=== PATIENT | female | born 1955 | race Caucasian/White ===

== ENCOUNTER 2016-09-10 14:05 | Emergency (ER) | payer BC ==
[2016-09-10 14:56] VITALS: BP 122/84
--- NOTE | 2016-09-10 14:59 | UC ---
Lower Extremity/Ankle HPI - HPI Summary HPI Summary: The patient comes in today for: 1. Right foot: Onset: 2 weeks. Palliative/provocative: Standing and walking makes it worse. Quality: Dull ache. Region: Dorsum of her right foot. Severity: 6/1o at rest, and 7/10 with walking. Time: Constant. Associated symptoms: Injury: She is a runner. She ran 7 miles and about a day later, she noticed soreness on the dorsum of her right foot. Over the last 2 weeks, she has been elevating and putting ice on it. She has continued to walk and wear shoes with padding. She states that this has not helped. Rx: Tylenol only x 2 in the last two weeks. * - History of Current Complaint Stated Complaint: FOOT INJURY Time Seen by Provider: 09/10/16 14:42 Hx Obtained From: Patient Hx Last Menstrual Period: "a few years ago." - Allergies/Home Medications Allergies/Adverse Reactions: Allergies Allergy/AdvReac Type Severity Reaction Status Date / Time NSAIDs Allergy Difficulty Verified 09/10/16 14:56 Breathing/Wheezing Shellfish Allergy Allergy Unknown Verified 09/10/16 14:56 Reaction Details Sulfa Antibiotics Allergy Hives Verified 09/10/16 14:56 Antibiotic taken at [facility] Allergy Swelling Uncoded 09/10/16 14:56 (Unknown contrast dye Allergy Difficulty Uncoded 09/10/16 14:56 Breathing/Wheezing PMH/Surg Hx/FS Hx/Imm Hx Previously Healthy: No - "insomnia." Endocrine History: Thyroid Disease, Hypothyroidism Respiratory History: Asthma - Surgical History Surgical History: Yes Surgery Procedure, Year, and Place: appe; exploratory lap, Partial Lung resection right lung 03/21 - Family History Known Family History: Positive: Cardiac Disease Negative: Hypertension - Social History Occupation: Employed Full-time Alcohol Use: Occasionally Substance Use Type: None Smoking Status (MU): Never Smoked Tobacco - Immunization History Most Recent Influenza Vaccination: 2012 Most Recent Tetanus Shot: 2008 Most Recent Pneumonia Vaccination: 2012 Review of Systems Constitutional: Negative Skin: Negative Eyes: Negative ENT: Negative Respiratory: Negative Cardiovascular: Negative Gastrointestinal: Negative Genitourinary: Negative Musculoskeletal: Arthralgia All Other Systems Reviewed And Are Negative: Yes Physical Exam Triage Information Reviewed: Yes Appearance: Well-Appearing, No Pain Distress, Well-Nourished, Other: - Patient has a flat affect. Vital Signs Reviewed: Yes Eyes: Positive: Conjunctiva Clear. Negative: Discharge ENT: Positive: Hearing grossly normal. Negative: Pharyngeal erythema, Nasal congestion, Nasal drainage, TM bulging, TM dull, TM red, Tonsillar swelling, Tonsillar exudate Dental: Negative: Gross Decay/Caries @, Dental Fracture @ Neck: Positive: Supple, Nontender, No Lymphadenopathy. Negative: Nuchal Rigidity Respiratory: Positive: Lungs clear, No respiratory distress, No accessory muscle use. Negative: Crackles, Wheezing Cardiovascular: Positive: RRR, No Murmur Abdomen Description: Positive: Nontender, No Organomegaly, Soft. Negative: Distended, Guarding Musculoskeletal: Positive: Other: - She has tenderness to palpation of the dorsum of the right foot and with hyperflexion of the toes. There is no ecchymosis or edema.. Negative: Strength Intact, ROM Intact, No Edema Neurological: Positive: Alert, Muscle Tone Normal Psychological: Positive: Age Appropriate Behavior, Consolable Skin: Negative: rashes, breakdown Diagnostics - Radiology No standard instances Xray Interpretation: No Acute Changes Radiology Interpretation Completed By: Radiologist Lower Extremity Course/Dx - Course Course Of Treatment: Patient was told that she had tenosynovitis of the dorsal tendons of the right foot. Treatment options in light of her NSAID allergy were discussed. - Differential Dx/Diagnosis Differential Diagnosis/HQI/PQRI: Cellulitis, Sprain, Strain Provider Diagnoses: Rigth foot tenosynovitis. Discharge - Discharge Plan Condition: Stable Disposition: HOME Patient Education Materials: Tenosynovitis (ED) Additional Instructions: If the prednisone does not your foot, please see one of the podiatry services in the [place] area. IF you get worse, please be seen sooner by your primary care provider or us.
--- NOTE | 2016-09-10 15:28 | RAD ---
HISTORY: Right foot pain, stress fracture COMPARISONS: None VIEWS: 3, Frontal, lateral, and oblique views of the right foot FINDINGS: BONE DENSITY: Normal. BONES: There is no displaced fracture. There is no appreciable erosion or periosteal reaction. JOINTS: There is no arthropathy. ALIGNMENT: There is no dislocation. SOFT TISSUES: Unremarkable. OTHER FINDINGS: None. IMPRESSION: NO ACUTE OSSEOUS INJURY. IF SYMPTOMS PERSIST, RECOMMEND REPEAT IMAGING.
== END 2016-09-10 15:58 | disposition home or self-care (01) ==
LOC: UCEAST 14:05
DX: M65.871 Other synovitis and tenosynovitis, right ankle and foot (principal)
CPT/HCPCS: 99212; G0463

== ENCOUNTER 2016-11-13 14:20 | Emergency (ER) | payer BC ==
[2016-11-13 15:10] VITALS: BP 111/80
--- NOTE | 2016-11-13 15:10 | UC ---
Respiratory Complaint HPI - HPI Summary HPI Summary: 60 YEAR OLD FEMALE WITH A PAST SURGICAL HISTORY OF PARTIAL RIGHT LUNG REMOVAL PRESENTS WITH COMPLAINS OF COUGH AND WHEEZING. - History of Current Complaint Chief Complaint: UCRespiratory Stated Complaint: COUGH Time Seen by Provider: 11/13/16 15:09 Hx Last Menstrual Period: "a few years ago." - Allergies/Home Medications Allergies/Adverse Reactions: Allergies Allergy/AdvReac Type Severity Reaction Status Date / Time NSAIDs Allergy Difficulty Verified 09/10/16 14:56 Breathing/Wheezing Shellfish Allergy Allergy Unknown Verified 09/10/16 14:56 Reaction Details Sulfa Antibiotics Allergy Hives Verified 09/10/16 14:56 Antibiotic taken at [facility] Allergy Swelling Uncoded 09/10/16 14:56 (Unknown contrast dye Allergy Difficulty Uncoded 09/10/16 14:56 Breathing/Wheezing PMH/Surg Hx/FS Hx/Imm Hx Previously Healthy: Yes - Surgical History Surgical History: Yes Surgery Procedure, Year, and Place: appe; exploratory lap, Partial Lung resection right lung 03/21 - Family History Known Family History: Positive: Cardiac Disease Negative: Hypertension - Social History Alcohol Use: Occasionally Substance Use Type: None Smoking Status (MU): Never Smoked Tobacco - Immunization History Most Recent Influenza Vaccination: 2012 Most Recent Tetanus Shot: 2008 Most Recent Pneumonia Vaccination: 2012 Review of Systems Constitutional: Negative Skin: Negative Eyes: Negative ENT: Negative Respiratory: Cough Cardiovascular: Negative Gastrointestinal: Negative Genitourinary: Negative Motor: Negative Neurovascular: Negative Musculoskeletal: Negative Neurological: Negative Psychological: Negative All Other Systems Reviewed And Are Negative: Yes Physical Exam Triage Information Reviewed: Yes Eye Exam: Normal ENT Exam: Normal Dental Exam: Normal Neck exam: Normal Neck: Positive: 1 Respiratory: Positive: Rhonchi, Wheezing Cardiovascular Exam: Normal Abdominal Exam: Normal Musculoskeletal Exam: Normal Neurological Exam: Normal Psychological Exam: Normal Skin Exam: Normal Respiratory Course/Dx - Differential Dx/Diagnosis Provider Diagnoses: COUGH. WHEEZING Discharge - Discharge Plan Condition: Stable Disposition: HOME Prescriptions: Albuterol HFA INHALER* [Ventolin HFA Inhaler*] 1 puff INH Q6H PRN #1 mdi PRN Reason: Wheezing DOXYcycline CAP(*) [DOXYcycline 100MG CAP(*)] 100 mg PO BID #14 cap Methylprednisolone [Medrol Dosepak 4 MG*] 4 mg PO .SEE COY INSTRUCTION #21 tab guaiFENesin/CODIEN 100MG-10MG* [Robitussin AC 100Mg-10Mg*] 5 ml PO Q6H PRN #120 ml MDD 20 ml PRN Reason: Cough Patient Education Materials: Probiotic (By mouth), Acute Cough (ED) Referrals: Leida Canas MD [Primary Care Provider] - If Needed
== END 2016-11-13 15:42 | disposition home or self-care (01) ==
LOC: UCEAST 14:20
DX: R05 Cough (principal); R06.2 Wheezing; Z88.2 Allergy status to sulfonamides; Z88.1 Allergy status to other antibiotic agents; Z91.041 Radiographic dye allergy status; Z88.6 Allergy status to analgesic agent; Z91.013 Allergy to seafood
CPT/HCPCS: 99212; G0463

== ENCOUNTER 2017-09-05 19:29 | Emergency (ER) | payer BC ==
--- NOTE | 2017-09-05 20:43 | UC ---
Lower Extremity/Ankle HPI - HPI Summary HPI Summary: 61 yo female presents with right ankle pain and swelling s/p inversion injury falling down steps about 3 hours [employer]. Unable to bear weight due to pain. Has not taken anything OTC for her pain. Denies numbness or tingling. - History of Current Complaint Stated Complaint: ANKLE INJURY Time Seen by Provider: 09/05/17 20:43 Hx Obtained From: Patient Hx Last Menstrual Period: "a few years ago." Onset/Duration: Sudden Onset Severity Initially: Moderate Severity Currently: Moderate Pain Intensity: 7 Pain Scale Used: 0-10 Numeric Aggravating Factor(s): Standing, Ambulation Alleviating Factor(s): Rest Able to Bear Weight: Yes - Allergies/Home Medications Allergies/Adverse Reactions: Allergies Allergy/AdvReac Type Severity Reaction Status Date / Time MS NSAIDs [NSAIDs] Allergy Difficulty Verified 09/10/16 14:56 Breathing/Wheezing MS Shellfish Allergy Allergy Difficulty Verified 09/05/17 20:46 [Shellfish Allergy] Breathing/Wheezing MS Sulfa Antibiotics Allergy Hives Verified 09/10/16 14:56 [Sulfa Antibiotics] piperacillin [From Zosyn] Allergy Swelling Verified 09/05/17 20:46 tazobactam [From Zosyn] Allergy Swelling Verified 09/05/17 20:46 Antibiotic taken at [facility] Allergy Swelling Uncoded 09/10/16 14:56 (Unknown contrast dye Allergy Difficulty Uncoded 09/10/16 14:56 Breathing/Wheezing PMH/Surg Hx/FS Hx/Imm Hx Previously Healthy: Yes Endocrine History: Hypothyroidism Respiratory History: Asthma Psychological History: Anxiety - Surgical History Surgical History: Yes Surgery Procedure, Year, and Place: appe; exploratory lap, Partial Lung resection right lung 03/21 - Family History Known Family History: Positive: Cardiac Disease Negative: Hypertension - Social History Occupation: Employed Full-time Lives: With Family Alcohol Use: Occasionally Substance Use Type: None Smoking Status (MU): Never Smoked Tobacco - Immunization History Most Recent Influenza Vaccination: 2012 Most Recent Tetanus Shot: 2008 Most Recent Pneumonia Vaccination: 2012 Review of Systems Constitutional: Negative Respiratory: Negative Cardiovascular: Negative Neurovascular: Negative Musculoskeletal: Other: - Right ankle pain Neurological: Negative Psychological: Negative All Other Systems Reviewed And Are Negative: Yes Physical Exam - Summary Physical Exam Summary: GENERAL: NAD. WDWN. No pain distress. SKIN: No rashes, sores, lesions, or open wounds. NECK: Supple. Nontender. No lymphadenopathy. CHEST: No accessory muscle use. Breathing comfortably and in no distress. CV: RRR. Without m/r/g. Pulses intact PT and DP. Brisk cap refill. MSK: RIGHT ankle: Lateral malleolus mild edema. FROM. Strength 5/5. Negative talar tilt. No increased laxity. Negative Blaine test. NEURO: Alert. Sensations intact and symmetric B/L LEs PSYCH: Age appropriate behavior. Triage Information Reviewed: Yes Vital Signs: Vital Signs: Temp Pulse Resp BP Pulse Ox 98.5 F 78 16 138/93 97 09/05/17 20:49 09/05/17 20:49 09/05/17 20:49 09/05/17 20:49 09/05/17 20:49 Lower Extremity Course/Dx - Course Course Of Treatment: XR: IMPRESSION: SOFT TISSUE SWELLING. NO ACUTE OSSEOUS INJURY. IF SYMPTOMS PERSIST, RECOMMEND REPEAT. IMAGING. Crutches, CHRISTIAN wrap, and gel ankle splint provided. Advised RICE and tylenol prn. F/u with Ortho if symptoms worsen/persist. - Differential Dx/Diagnosis Provider Diagnoses: Right ankle sprain Discharge - Sign-Out/Discharge Documenting (check all that apply): Discharge/Admit/Transfer - Discharge Plan Condition: Stable Disposition: HOME Patient Education Materials: Ankle Sprain (DC) Forms: *Work Release Referrals: Leida Canas MD [Primary Care Provider] - Park Mars MD [Medical Doctor] - If Needed Additional Instructions: If you develop a fever, shortness of breath, chest pain, new or worsening symptoms - please call your PCP or go to the ED. Your blood pressure was high at todays visit. Please see your primary provider within 4 weeks for recheck and re-evaluation. 1) Rest, Ice, and Elevate your ankle as much as possible over the next 2-3 days 2) Use your CHRISTIAN wrap, gel splint, and crutches as needed for added comfort and support 3) May take tylenol every 6-8 hours as needed fr pain 4) If your symptoms worsen or do not improve within 7-10 days - please call Orthopedics at the number below to schedule a follow up appointment. - Billing Disposition and Condition Condition: STABLE Disposition: HOME
[2017-09-05 20:55] VITALS: BP 138/93
--- NOTE | 2017-09-05 21:13 | RAD ---
HISTORY: Right ankle pain, fall COMPARISONS: None VIEWS: 3, Frontal, lateral, and oblique views of the right ankle FINDINGS: BONE DENSITY: Normal. BONES: There is no displaced fracture. JOINTS: There is no arthropathy. ALIGNMENT: There is no dislocation. SOFT TISSUES: There is soft tissue swelling most pronounced along the lateral malleolus. OTHER FINDINGS: None. IMPRESSION: SOFT TISSUE SWELLING. NO ACUTE OSSEOUS INJURY. IF SYMPTOMS PERSIST, RECOMMEND REPEAT IMAGING.
== END 2017-09-05 22:01 | disposition home or self-care (01) ==
LOC: UCEAST 19:29
DX: S93.401A Sprain of unspecified ligament of right ankle, initial encounter (principal); W10.9XXA Fall (on) (from) unspecified stairs and steps, initial encounter; Y92.9 Unspecified place or not applicable; Z88.2 Allergy status to sulfonamides; Z88.3 Allergy status to other anti-infective agents; Z91.041 Radiographic dye allergy status; Z91.013 Allergy to seafood; E03.9 Hypothyroidism, unspecified; J45.909 Unspecified asthma, uncomplicated; F41.9 Anxiety disorder, unspecified; Z90.2 Acquired absence of lung [part of]
CPT/HCPCS: 99213; G0463

== ENCOUNTER 2018-08-19 20:45 | Emergency (ER) | payer BC ==
[2018-08-19 21:00] VITALS: BP 155/95
[2018-08-19] MEDS ORDERED: Ipratropium 0.5MG/2.5ML NEB* 0.5 MG/2.5 ML NEB.SOLN INH ONE (21:57)
[2018-08-19] MEDS ORDERED: Albuterol 2.5 MG/3 ML NEB.SOL* (0.083%) INH ONE (21:57)
--- NOTE | 2018-08-19 22:04 | UC ---
Respiratory Complaint HPI - HPI Summary HPI Summary: 1 WEEK OF URI SYMPTOMS INCLUDING COUGH, CONGESTION AND CHEST TIGHTNESS. HAS A HISTORY OF ASTHMA AND STATES THAT OVER THE PAST FEW DAYS SHE HAS HAD AN INCREASE IN COUGH AND SENSATION OF WHEEZING. NO FEVER, NAUSEA/VOMITING. OCCASIONALLY COUGHS UP SOME PHLEGM. 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 Negative: Fever - Allergies/Home Medications Allergies/Adverse Reactions: Allergies Allergy/AdvReac Type Severity Reaction Status Date / Time MS NSAIDs [NSAIDs] Allergy Difficulty Verified 09/10/16 14:56 Breathing/Wheezing MS Shellfish Allergy Allergy Difficulty Verified 09/05/17 20:46 [Shellfish Allergy] Breathing/Wheezing MS Sulfa Antibiotics Allergy Hives Verified 09/10/16 14:56 [Sulfa Antibiotics] NSAIDS (Non-Steroidal Allergy Difficulty Verified 08/19/18 22:30 Anti-Inflamma Breathing/Wheezing piperacillin [From Zosyn] Allergy Swelling Verified 09/05/17 20:46 shellfish derived Allergy Difficulty Verified 08/19/18 22:30 Breathing/Wheezing Sulfa (Sulfonamide Allergy Hives Verified 08/19/18 22:30 Antibiotics) tazobactam [From Zosyn] Allergy Swelling Verified 09/05/17 20:46 contrast dye Allergy Difficulty Uncoded 09/10/16 14:56 Breathing/Wheezing Home Medications: Home Medications Fluticasone HFA 110 mcg(NF) [Flovent HFA 110 mcg(NF)] 1 puff INH BID 08/19/18 [ History Confirmed 08/19/18] PMH/Surg Hx/FS Hx/Imm Hx Endocrine History: Hypothyroidism Respiratory History: Asthma Other Respiratory History: H/O RIGHT UPPER LOBE RESECTION DUE TO INFECTION - Surgical History Surgical History: Yes Surgery Procedure, Year, and Place: appe; exploratory lap, Partial Lung resection right lung 03/21 - Family History Known Family History: Positive: Cardiac Disease Negative: Hypertension - Social History Alcohol Use: Occasionally Substance Use Type: None Smoking Status (MU): Never Smoked Tobacco - Immunization History Most Recent Influenza Vaccination: 2012 Most Recent Tetanus Shot: 2008 Most Recent Pneumonia Vaccination: 2012 Review of Systems All Other Systems Reviewed And Are Negative: Yes Constitutional: Positive: Negative ENT: Positive: Negative Respiratory: Positive: Shortness Of Breath, Cough Cardiovascular: Positive: Negative Gastrointestinal: Positive: Negative Physical Exam Triage Information Reviewed: Yes Appearance: Well-Appearing, No Pain Distress, Well-Nourished Vital Signs: Initial Vital Signs Temp 98.9 F 08/19/18 20:55 Pulse 80 08/19/18 20:55 Resp 18 08/19/18 20:55 BP 155/95 08/19/18 20:55 Pulse Ox 99 08/19/18 20:55 Vital Signs Reviewed: Yes Eyes: Positive: Conjunctiva Clear ENT: Positive: Hearing grossly normal, Pharynx normal, TMs normal Neck: Positive: Supple, Nontender, No Lymphadenopathy Respiratory: Positive: Lungs clear, No respiratory distress, No accessory muscle use, Decreased breath sounds - LEFT LUNG BASE. Negative: Crackles, Rhonchi, Wheezing Cardiovascular Exam: Normal Abdomen Description: Positive: Soft Musculoskeletal: Positive: No Edema Neurological: Positive: Alert Psychological: Positive: Age Appropriate Behavior Skin: Negative: Rashes Diagnostics - Radiology CXR Radiology Interpretation Completed By: ED Physician Summary of Radiographic Findings: NO ACUTE PROCESS Re-Evaluation - Re-Evaluation First Eval Re-Evaluation Time: 22:40 Change: Improved Respiratory Course/Dx - Course Course Of Treatment: LIKELY VIRAL ILLNESS THAT TRIGGERED ASTHMA EXACERBATION/BRONCHOSPASM. MILD IMPROVEMENT AFTER DUONEB TREATMENT IN THE . CXR UNREMARKABLE ON MY INITIAL INTERPRETATION. RADIOLOGY READ PENDING. WILL TREAT WITH STEROIDS AND WILL REFILL ALBUTEROL INHALER. ADVISED OTC ANTIHISTAMINE DAILY WHILE SYMPTOMATIC. NO INDICATION FOR ANTIBIOTICS AT PRESENT. FOLLOW-UP IF NEEDED. - Differential Dx/Diagnosis Provider Diagnosis: Asthma exacerbation Discharge - Sign-Out/Discharge Documenting (check all that apply): Patient Departure All imaging exams completed and their final reports reviewed: No - Discharge Plan Condition: Stable Disposition: HOME Prescriptions: Albuterol HFA INHALER* [Ventolin HFA Inhaler*] 2 puff INH Q4H PRN #1 mdi PRN Reason: Shortness Of Breath predniSONE TAB* [Deltasone TAB*] 50 mg PO DAILY #5 tab Patient Education Materials: Asthma (ED), Bronchospasm (ED) Referrals: Leida Canas MD [Primary Care Provider] - If Needed Additional Instructions: YOU LIKELY HAD A VIRAL INFECTION THAT TRIGGERED YOUR ASTHMA SYMPTOMS. YOU HAD SOME IMPROVEMENT AFTER THE NEBULIZER TREATMENT. CONTINUE TO USE YOUR ALBUTEROL INHALER AT HOME PRESCRIBED. 5 DAY COURSE OF PREDNISONE TO HELP WITH AIRWAY INFLAMMATION. I WOULD RECOMMEND YOU ALSO TAKE AN OTC ANTIHISTAMINE DAILY TO COVER FOR ANY POSSIBLE ALLERGIC COMPONENT. CHEST X-RAY TODAY LOOKS UNCHANGED FROM PREVIOUS AND NEGATIVE FOR ANY ACUTE PROCESS ON MY INITIAL INTERPRETATION. WE WILL CALL YOU TOMORROW IF THE RADIOLOGY READ DIFFERS. IF YOU ARE NOT FEELING ANY BETTER OVER THE NEXT FEW DAYS I AM WORKING IN [place] ON SATURDAY. YOU MAY CALL ME THERE UNTIL 2 PM WITH ANY QUESTIONS OR CONCERNS. - Billing Disposition and Condition Condition: STABLE Disposition: Home
--- NOTE | 2018-08-20 15:51 | UC ---
- Progress Note Progress Note: Radiologist reading of chest x-ray from August 19, 2018 his COPD no acute disease process. Provider interpretation same date was also no acute disease process therefore there is no discrepancy. Course/Dx - Diagnoses Provider Diagnoses: Asthma exacerbation Discharge - Sign-Out/Discharge Documenting (check all that apply): Patient Departure All imaging exams completed and their final reports reviewed: Yes - Discharge Plan Condition: Stable Disposition: HOME Prescriptions: Albuterol HFA INHALER* [Ventolin HFA Inhaler*] 2 puff INH Q4H PRN #1 mdi PRN Reason: Shortness Of Breath predniSONE TAB* [Deltasone TAB*] 50 mg PO DAILY #5 tab Patient Education Materials: Asthma (ED), Bronchospasm (ED) Referrals: Leida Canas MD [Primary Care Provider] - If Needed Additional Instructions: YOU LIKELY HAD A VIRAL INFECTION THAT TRIGGERED YOUR ASTHMA SYMPTOMS. YOU HAD SOME IMPROVEMENT AFTER THE NEBULIZER TREATMENT. CONTINUE TO USE YOUR ALBUTEROL INHALER AT HOME PRESCRIBED. 5 DAY COURSE OF PREDNISONE TO HELP WITH AIRWAY INFLAMMATION. I WOULD RECOMMEND YOU ALSO TAKE AN OTC ANTIHISTAMINE DAILY TO COVER FOR ANY POSSIBLE ALLERGIC COMPONENT. CHEST X-RAY TODAY LOOKS UNCHANGED FROM PREVIOUS AND NEGATIVE FOR ANY ACUTE PROCESS ON MY INITIAL INTERPRETATION. WE WILL CALL YOU TOMORROW IF THE RADIOLOGY READ DIFFERS. IF YOU ARE NOT FEELING ANY BETTER OVER THE NEXT FEW DAYS I AM WORKING IN [place] ON SATURDAY. YOU MAY CALL ME THERE UNTIL 2 PM WITH ANY QUESTIONS OR CONCERNS. - Billing Disposition and Condition Condition: STABLE Disposition: Home
== END 2018-08-19 22:55 | disposition home or self-care (01) ==
LOC: UCEAST 20:45
DX: J45.901 Unspecified asthma with (acute) exacerbation (principal); Z91.041 Radiographic dye allergy status; Z88.2 Allergy status to sulfonamides; Z88.0 Allergy status to penicillin; Z91.013 Allergy to seafood; Z88.1 Allergy status to other antibiotic agents
CPT/HCPCS: 71046; 99212; G0463

== ENCOUNTER 2019-06-26 16:56 | Emergency (ER) | payer BC ==
[2019-06-26] MEDS ORDERED: Albuterol/Ipratropium NEB.SOL* Albuterol 2.5 MG/Ipratropium 0.5 MG 3 ML INH ONE (17:31)
[2019-06-26 17:34] VITALS: BP 168/97
--- NOTE | 2019-06-26 17:44 | UC ---
Asthma HPI - HPI Summary HPI Summary: 63-year-old female with history of asthma presents with onset of intermittent chest tightness for the past 4 days. Occasional nonproductive cough. States she has been using her albuterol inhaler 2-3 times a day with relief in symptoms. Patient traveled to [place] over a month ago and most recently to [place] from June 13- where she was visiting her sister. No sick contact. No known contact with persons isolated for or diagnosed with COVID- 19. Denies fever, chills, body aches, fatigue, nasal congestion, ear pain, sore throat, chest pain, palpitations, wheezing, abdominal pain, nausea, vomiting, or diarrhea. - History of Current Complaint Chief Complaint: UCRespiratory Stated Complaint: SOB Time Seen by Provider: 06/26/19 16:58 Hx Obtained From: Patient Hx Last Menstrual Period: "a few years ago." Pain Intensity: 0 - Allergy/Home Medications Allergies/Adverse Reactions: Allergies Allergy/AdvReac Type Severity Reaction Status Date / Time MS NSAIDs [NSAIDs] Allergy Difficulty Verified 09/10/16 14:56 Breathing/Wheezing MS Shellfish Allergy Allergy Difficulty Verified 09/05/17 20:46 [Shellfish Allergy] Breathing/Wheezing MS Sulfa Antibiotics Allergy Hives Verified 09/10/16 14:56 [Sulfa Antibiotics] NSAIDS (Non-Steroidal Allergy Difficulty Verified 06/26/19 17:27 Anti-Inflamma Breathing/Wheezing piperacillin [From Zosyn] Allergy Swelling Verified 06/26/19 17:27 shellfish derived Allergy Difficulty Verified 06/26/19 17:27 Breathing/Wheezing Sulfa (Sulfonamide Allergy Hives Verified 06/26/19 17:27 Antibiotics) tazobactam [From Zosyn] Allergy Swelling Verified 06/26/19 17:27 contrast dye Allergy Difficulty Uncoded 06/26/19 17:27 Breathing/Wheezing Home Medications: Home Medications Levothyroxine Sodium [Levothyroxine] 75 mcg PO 0800 03/11/14 [History Confirmed 09/05/17] Montelukast Sodium [Singulair] 10 mg PO BEDTIME 03/11/14 [History Confirmed ] Nortriptyline CAP* [Nortriptylline CAP*] 50 mg PO DAILY 03/11/14 [History Confirmed 09/05/17] clonazePAM [Klonopin] 0.125 mg PO BEDTIME 03/11/14 [History Confirmed 09/05/17] Acetaminophen [Tylenol Extra Strength] 500 mg PO Q6H PRN 04/01/14 [History Confirmed 11/13/16] Fluticasone HFA 110 mcg(NF) [Flovent HFA 110 mcg(NF)] 1 puff INH BID 08/19/18 [ History Confirmed 08/19/18] Albuterol HFA INHALER* [Ventolin HFA Inhaler*] 1 puff INH Q4H PRN 06/26/19 [ History Confirmed 06/26/19] Albuterol/Ipratropium RESP(NF) [Combivent Respimat(NF)] 2 puff IN Q6HR PRN #1 aer 06/26/19 [Rx] PMH/Surg Hx/FS Hx/Imm Hx Endocrine History: Thyroid Disease Respiratory History: Asthma Psychological History: Anxiety, Depression - Surgical History Surgical History: Yes Surgery Procedure, Year, and Place: appe; exploratory lap, Partial Lung resection right lung 03/21 - Family History Known Family History: Positive: Cardiac Disease Negative: Hypertension - Social History Occupation: Retired Lives: With Family Alcohol Use: Occasionally Substance Use Type: None Smoking Status (MU): Never Smoked Tobacco - Immunization History Most Recent Influenza Vaccination: 2012 Most Recent Tetanus Shot: 2008 Most Recent Pneumonia Vaccination: 2012 Review of Systems All Other Systems Reviewed And Are Negative: Yes Constitutional: Negative: Fever, Chills Eyes: Negative: Drainage, Eye Redness ENT: Negative: Sore Throat, Ear Ache, Nasal Discharge, Sinus Congestion, Sinus Pain/Tenderness Respiratory: Positive: Shortness Of Breath - Chest tightness, Cough. Negative: Other - Wheezing Cardiovascular: Negative: Palpitations, Chest Pain Gastrointestinal: Negative: Abdominal Pain, Vomiting, Diarrhea, Nausea Genitourinary: Positive: Negative Motor: Positive: Negative Neurological/Mental Status: Positive: Negative Is Patient Immunocompromised?: No Physical Exam - Summary Physical Exam Summary: GENERAL APPEARANCE: Well developed, well nourished, alert and cooperative, and appears to be in no acute distress. EYES: Conjunctiva clear. No drainage. EARS: External auditory canals and tympanic membranes clear, hearing grossly intact. NOSE: No nasal discharge. THROAT: Pharynx normal No tonsilar inflammation, swelling, exudate, or lesions. Uvula midline. NECK: Neck supple, non-tender without lymphadenopathy. CARDIAC: Normal S1 and S2. No S3, S4 or murmurs. Rhythm is regular. There is no peripheral edema, cyanosis or pallor. Extremities are warm and well perfused. Capillary refill is less than 2 seconds. Peripheral pulses intact. LUNGS: Clear to auscultation without rales, rhonchi, wheezing or diminished breath sounds. Cough not observed. ABDOMEN: Positive bowel sounds. Soft, nondistended, nontender. No guarding or rebound. No masses or hepatosplenomegally. MUSKULOSKELETAL: ROM intact to all extremities. No joint erythema or tenderness. Normal muscular development. Normal gait. SKIN: Skin normal color, texture and turgor with no lesions or eruptions. Triage Information Reviewed: Yes Vital Signs: Initial Vital Signs Temp 98.5 F 06/26/19 17: Pulse 91 06/26/19 17:29 Resp 18 06/26/19 17: BP 168/97 06/26/19 17: Pulse Ox 99 06/26/19 17:29 Vital Signs Reviewed: Yes Asthma Course/Dx - Course Course Of Treatment: 63-year-old female with history of asthma presents with onset of intermittent chest tightness for the past 4 days. Occasional nonproductive cough. States she has been using her albuterol inhaler 2-3 times a day with relief in symptoms. Patient traveled to [place] over a month ago and most recently to [place] from June 13- where she was visiting her sister. No sick contact. No known contact with persons isolated for or diagnosed with COVID- 19. Denies fever, chills, body aches, fatigue, nasal congestion, ear pain, sore throat, chest pain, palpitations, wheezing, abdominal pain, nausea, vomiting, or diarrhea. Afebrile. Hypertensive otherwise vital signs stable. Patient had no nasal congestion, normal TMs, normal pharynx without tonsillar swelling or exudate, no cervical lymphadenopathy, no respiratory distress, clear bilateral breath sounds, and otherwise unremarkable exam. Chest x-ray showed no acute cardiopulmonary pathology. Patient was given a DuoNeb treatment with improvement in her symptoms. Reviewed x-ray results with the patient. Discussed that her symptoms are likely an exacerbation of her asthma. I will provide her with a prescription for a Combivent Respimat 2 puffs every 6 hours as needed for shortness of breath since she had such good response to the DuoNeb treatment. She is to follow-up with her primary care provider in 3 days if symptoms are not improving. Anticipatory guidance and warning symptoms were reviewed with the patient. Verbalizes understanding and agrees with plan of care. - Differential Dx/Diagnosis Differential Diagnosis/HQI/PQRI: Acute Asthma, Bronchitis, Pneumonia Provider Diagnosis: Asthma exacerbation Discharge ED - Sign-Out/Discharge Documenting (check all that apply): Patient Departure All imaging exams completed and their final reports reviewed: Yes - Discharge Plan Condition: Stable Disposition: HOME Prescriptions: Albuterol/Ipratropium RESP(NF) [Combivent Respimat(NF)] 2 puff IN Q6HR PRN #1 aer PRN Reason: Sob/Wheezing Patient Education Materials: Asthma (ED) Referrals: Alice Shelley MD [Primary Care Provider] - 3 Days Additional Instructions: Your chest x-ray that was performed in the clinic today showed no evidence of pneumonia. I suspect that your symptoms are an asthma exacerbation. Uses ipratropiumalbuterol 2 puffs every 6 hours as needed for shortness of breath. Use this in place of your albuterol inhaler for the next couple of days. Continue to use her Flovent inhaler as prescribed. Follow-up with your primary care provider in 3 days if symptoms are not improving. Seek immediate medical attention in the emergency room if you develop a fever greater than 100.5 F, has severe chest pain, persistent shortness of breath despite using your inhaler, or have any worsening of symptoms. - Billing Disposition and Condition Condition: STABLE Disposition: Home
== END 2019-06-26 18:30 | disposition home or self-care (01) ==
LOC: UCEAST 16:56
DX: J45.901 Unspecified asthma with (acute) exacerbation (principal); R03.0 Elevated blood-pressure reading, without diagnosis of hypertension; E07.9 Disorder of thyroid, unspecified; F41.9 Anxiety disorder, unspecified; F32.9 Major depressive disorder, single episode, unspecified; Z79.890 Hormone replacement therapy; Z79.899 Other long term (current) drug therapy; Z88.2 Allergy status to sulfonamides; Z88.8 Allergy status to other drugs, medicaments and biological substances; Z88.6 Allergy status to analgesic agent; Z91.041 Radiographic dye allergy status; Z88.0 Allergy status to penicillin; Z91.013 Allergy to seafood
CPT/HCPCS: 71046; 99212; A9270-GY; G0463

== ENCOUNTER 2024-01-27 13:24 | Observation (INO) ==
[2024-01-27 14:08] LABS: ABS Basophils 0.1 10^3/uL (0.0-0.1); ABS Eosinophils 0.2 10^3/uL (0.0-0.5); ABS Lymphocytes 2.3 10^3/uL (1.0-4.8); ABS Monocytes 0.3 10^3/uL (0.0-0.9); ABS Neutrophils 3.8 10^3/uL (1.5-7.6); ABS Nucleated RBC 0.01 10^3/ul; Eosinophil % 2.3 %; Hematocrit 39.2 % (35-45); Hemoglobin 13.1 g/dL (11.5-14.3); Lymphocyte % 34.8 %; Mean Corpuscular Hgb Conc 33.3 g/dL (31-36); Mean Corpuscular Volume 84.2 fL (80-97); Mean Platelet Volume 7.9 fL (7.5-11.2); Nucleated Red Blood Cells % 0.2 %/100WBC (0.0-0.8); Platelet Count 301 10^3/uL (150-450); Red Blood Count 4.66 10^6/uL (3.63-4.92); Red Cell Distribution Width 14.1 % (12-17); White Blood Count 6.7 10^3/uL (3.8-11.8)
[2024-01-27 14:13] LABS: INR 0.97 (0.85-1.14)
[2024-01-27 14:32] LABS: High Sens Troponin Baseline < 3 pg/mL (<15)
[2024-01-27 14:50] LABS: ALT 22 U/L (7-52); AST 22 U/L (13-39); Albumin 4.3 g/dL (3.2-5.2); Albumin/Globulin Ratio 1.8 (1-3); Alkaline Phosphatase 92 U/L (35-149); Anion Gap 7 mmol/L (2-16); Blood Urea Nitrogen 16 mg/dL (6-24); CO2 Carbon Dioxide 27 mmol/L (22-32); Calcium 9.4 mg/dL (8.6-10.3); Chloride 104 mmol/L (101-111); Creatinine, Serum 0.92 mg/dL (0.51-0.95); Globulin 2.4 g/dL (2-4); Glucose 119 mg/dL (70-100); Potassium 4.2 mmol/L (3.5-5.0); Sodium 138 mmol/L (135-145); Total Bilirubin 0.3 mg/dL (0.2-1.0); Total Protein 6.7 g/dL (6.4-8.9); eGFR CKD-EPI 68.7 (>60)
[2024-01-27] MEDS: Dexamethasone IV 4 MG/ML VIAL 1 ml VIAL IV SLOW PU ONE (16:08)
[2024-01-27 16:15] LABS: High Sensitivity Troponin 1 Hr < 3 pg/mL (<15)
[2024-01-27] MEDS: Iohexol 350 (CONTRAST) 500 ML MDV IV ONE (16:38)
[2024-01-27] MEDS ORDERED: Sulfur Hexaflouride MICROSPHR 25 MG VIAL IV PRN (19:09)
[2024-01-27] MEDS: Enoxaparin 40 MG/0.4 ML SYR SUBCUT SCH (20:50)
[2024-01-27 20:56] LABS: Cholesterol 213 mg/dL; LDL Cholesterol 116 mg/dL; Triglycerides 122 mg/dL
[2024-01-28 06:45] LABS: ABS Lymphocytes 1.3 10^3/uL (1.0-4.8); ABS Monocytes 0.2 10^3/uL (0.0-0.9); ABS Neutrophils 5.5 10^3/uL (1.5-7.6); Hematocrit 36.4 % (35-45); Hemoglobin 12.2 g/dL (11.5-14.3); Lymphocyte % 18.5 %; Mean Corpuscular Hgb Conc 33.5 g/dL (31-36); Mean Corpuscular Volume 83.5 fL (80-97); Mean Platelet Volume 7.9 fL (7.5-11.2); Platelet Count 301 10^3/uL (150-450); Red Blood Count 4.36 10^6/uL (3.63-4.92); Red Cell Distribution Width 13.8 % (12-17)
[2024-01-28 06:52] LABS: INR 1.03 (0.85-1.14)
[2024-01-28 07:21] LABS: Albumin 4.1 g/dL (3.2-5.2); Albumin/Globulin Ratio 1.9 (1-3); Calcium 9.2 mg/dL (8.6-10.3); Creatinine, Serum 0.73 mg/dL (0.51-0.95); Globulin 2.2 g/dL (2-4); Magnesium 1.8 mg/dL (1.9-2.7); Total Bilirubin 0.3 mg/dL (0.2-1.0); Total Protein 6.3 g/dL (6.4-8.9); eGFR CKD-EPI 90.6 (>60)
[2024-01-28] MEDS ORDERED: Albuterol HFA INHALER 8 gm MDI INH PRN (07:39)
[2024-01-28] MEDS: Lactated Ringers 1000 ml BAG 1,000 ML IV SCH (16:49)
[2024-01-28] MEDS: Magnesium Sulfate IV 1GM/100ML 1 GM/100 ML BAG IV ONE (16:49)
[2024-01-28 17:51] VITALS: BP 128/90
== END 2024-01-28 16:52 | disposition home or self-care (01) ==
LOC: ED 13:24 → EDHOLD 13:24
PROVIDERS: ADMIT Internal Medicine; ATTEND Internal Medicine